=== PATIENT | male | born 1955 | race Caucasian/White ===

== ENCOUNTER → 2016-05-05 | Outpatient (CLI) | payer BC ==
[~2016-05-05] MED LIST: CRG40 PO; FRS/40 PO; MULT-506 PO; POTA10CA28 PO; SPIR100T PO
--- NOTE | 2016-05-05 09:26 | DIAGNOSTIC IMAGING REPORT ---
ULTRASOUND RIGHT UPPER QUADRANT ABDOMEN CLINICAL HISTORY: Alcohol cirrhosis. COMPARISON STUDY: Abdominal ultrasound dated 04/03/2014. MRI of the liver dated 05/19/2014. TECHNIQUE: Real-time, grayscale, and color flow sonography of the right upper quadrant of the abdomen was performed. Images are reviewed in the transverse and longitudinal planes. FINDINGS: Liver: The liver is cirrhotic in morphology and heterogeneous in echotexture. There is nodularity of the hepatic surface contour. There is no sonographic evidence of hepatic mass lesion. There is no intrahepatic biliary ductal dilatation. The main portal vein is patent. Gallbladder: Small shadowing calcified gallstones are identified. There is no gallbladder wall thickening or pericholecystic fluid. A sonographic Hough's sign is reportedly absent. The common bile duct measures up to 0.3 cm in diameter. Pancreas: Visualized portions of the pancreatic head and body are normal in appearance. Right kidney: Survey images of the right kidney demonstrate cortical atrophy. There is no hydronephrosis. Ascites: None. IMPRESSION: 1. The liver is cirrhotic in morphology and heterogeneous in echotexture. 2. Cholelithiasis without sonographic evidence of acute cholecystitis. Electronically signed by: Oswaldo Tam M.D. 05/05/2016 9:24 AM Dictated Date/Time: 05/05/2016 9:22 AM
[2016-05-05 14:49] LABS: BASO % 0.6 %; BASO ABS # 0.05 K/uL (0-0.2); COMPLETE YES; EOS % 1.5 %; HEMATOCRIT 48.4 % (42-52); IG% 0.5 %; LYMPH % 21.4 %; LYMPH ABS # 1.75 K/uL (1.2-3.4); MEAN CORPUSCULAR HEMOGLOBIN 34.4 pg (25-34); MEAN CORPUSCULAR HGB CONC 34.7 g/dl (32-36); MEAN PLATELET VOLUME 10.7 fL (7.4-10.4); MONO % 9.6 %; NEUT % 66.4 %; PLATELET COUNT 214 K/uL (130-400); RED BLOOD COUNT 4.89 M/uL (4.7-6.1); WHITE BLOOD COUNT 8.19 K/uL (4.8-10.8)
[2016-05-05 15:01] LABS: INR 1.1 (0.9-1.1); PROTHROMBIN TIME (PATIENT) 11.7 SECONDS (9.0-12.0)
[2016-05-05 15:27] LABS: ALT/SGPT 54 U/L (12-78); AST/SGOT 55 U/L (15-37); BLOOD UREA NITROGEN 12 mg/dl (7-18); BUN/CREATININE RATIO 11.1 (10-20); CALCIUM 9.1 mg/dl (8.5-10.1); CARBON DIOXIDE 28 mmol/L (21-32); CHLORIDE 102 mmol/L (98-107); GLUCOSE 170 mg/dl (70-99); POTASSIUM 4.4 mmol/L (3.5-5.1); SODIUM 139 mmol/L (136-145)
[2016-05-05 15:29] LABS: ALB/GLOB RATIO 0.9 (0.9-2); ALKALINE PHOSPHATASE 83 U/L (45-117)
[2016-05-09 19:38] LABS: AFP TUMOR MARKER SERUM 8.3 NG/ML (<6.1)
== END | disposition home or self-care (01) ==
PROVIDERS: ATTEND Registered Nurse
DX: K70.30 Alcoholic cirrhosis of liver without ascites (principal)

== ENCOUNTER → 2017-04-03 | Outpatient (CLI) | payer BC ==
--- NOTE | 2017-04-03 09:09 | DIAGNOSTIC IMAGING REPORT ---
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 Heterogeneous internal architecture. No change from the prior exam in terms of appearance. Pancreas is unremarkable. Gallstones are present within the gallbladder lumen. This is unchanged. Normal caliber common bile duct is 5 mm. Right kidney is negative for hydronephrosis. IMPRESSION: 1. Findings consistent with hepatic cirrhosis. 2. Gallstones with a normal caliber bile ducts. 3. Remainder the study is negative. 4. No change from the prior exam The above report was generated using voice recognition software. It may contain grammatical, syntax or spelling errors. Electronically signed by: Javi Maher M.D. 04/03/2017 9:07 AM Dictated Date/Time: 04/03/2017 9:05 AM
== END | disposition home or self-care (01) ==
LOC: C.ULTRBC 08:11
PROVIDERS: ATTEND Registered Nurse
DX: K70.30 Alcoholic cirrhosis of liver without ascites (principal)

== ENCOUNTER → 2017-10-19 | Outpatient (CLI) | payer BC ==
[2017-10-19 11:14] LABS: BASO % 0.7 %; BASO ABS # 0.05 K/uL (0-0.2); EOS % 1.2 %; EOS ABS # 0.09 K/uL (0-0.5); HEMATOCRIT 45.9 % (42-52); HEMOGLOBIN 15.5 g/dL (14.0-18.0); IG# 0.02 K/uL (0.00-0.02); LYMPH % 22.6 %; LYMPH ABS # 1.71 K/uL (1.2-3.4); MEAN CELL VOLUME 104.1 fL (80-100); MEAN CORPUSCULAR HEMOGLOBIN 35.1 pg (25-34); MEAN CORPUSCULAR HGB CONC 33.8 g/dl (32-36); MEAN PLATELET VOLUME 10.8 fL (7.4-10.4); MONO % 12.4 %; MONO ABS # 0.94 K/uL (0.11-0.59); NEUT % 62.8 %; NEUT ABS # 4.77 K/uL (1.4-6.5); PLATELET COUNT 205 K/uL (130-400); RED CELL DISTRIBUTION WIDTH CV 13.4 % (11.5-14.5); RED CELL DISTRIBUTION WIDTH SD 51.2 fL (36.4-46.3); WHITE BLOOD COUNT 7.58 K/uL (4.8-10.8)
[2017-10-19 11:20] LABS: INR 1.3 (0.9-1.1)
[2017-10-19 14:45] LABS: ALKALINE PHOSPHATASE 131 U/L (45-117); ALT/SGPT 34 U/L (12-78); AST/SGOT 76 U/L (15-37); BLOOD UREA NITROGEN 9 mg/dl (7-18); CALCIUM 9.2 mg/dl (8.5-10.1); CARBON DIOXIDE 25 mmol/L (21-32); GLUCOSE 126 mg/dl (70-99); POTASSIUM 4.3 mmol/L (3.5-5.1); SODIUM 137 mmol/L (136-145); TOTAL PROTEIN 7.4 gm/dl (6.4-8.2)
== END | disposition home or self-care (01) ==
LOC: C.LABBC 09:20
PROVIDERS: ATTEND Registered Nurse
DX: K70.30 Alcoholic cirrhosis of liver without ascites (principal)

== ENCOUNTER → 2017-10-19 | Outpatient (CLI) | payer BC ==
--- NOTE | 2017-10-19 09:33 | DIAGNOSTIC IMAGING REPORT ---
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 TECHNIQUE: Real-time grayscale and limited color Doppler ultrasound imaging of the abdomen limited to the right upper quadrant was performed. COMPARISON: 04/03/2017. FINDINGS: Pancreas: Visualized portions of the pancreatic head and body normal. Liver: Nodular contour with hyperechogenic parenchyma and heterogeneous echotexture, consistent with cirrhosis. The liver measures 16.9 cm in maximal sagittal dimension. Vague 1.3 cm hyperechogenic focus in the liver, possibly a lesion. This was not demonstrated on prior. Main portal vein patent with normal directional flow. Biliary: No intrahepatic biliary ductal dilatation. Common bile duct measures up to 4 mm in diameter. Gallbladder: Gallstones without evidence of gallbladder distention, wall thickening, or pericholecystic fluid or inflammatory change. Sonographic Hough's sign negative. Right kidney: 9 mm hyperechogenic focus at the lower pole the right kidney, unchanged. This may represent a small angiomyolipoma with calculus considered less likely given the lack of shadowing. Ascites: Small amount of ascites. Other: None. IMPRESSION: 1. Cirrhosis with small volume ascites. 2. Vague 1.3 cm hyperechogenic lesion suggested. Further evaluation with contrast-enhanced MR of the liver recommended. 3. Cholelithiasis. The report will be called/faxed according to standard departmental protocol. Electronically signed by: Ehsan Syed M.D. 10/19/2017 9:31 AM Dictated Date/Time: 10/19/2017 9:26 AM
== END | disposition home or self-care (01) ==
LOC: C.ULTRBC 08:49
PROVIDERS: ATTEND Registered Nurse
DX: K70.30 Alcoholic cirrhosis of liver without ascites (principal)

== ENCOUNTER → 2017-10-27 | Outpatient (CLI) | payer BC ==
[~2017-10-27] MED LIST changes: +GADOXETATE DISODIUM (NON-WT BASED PROCEDURE) IV PRN
--- NOTE | 2017-10-27 10:11 | DIAGNOSTIC IMAGING REPORT ---
ADDENDUM Please see the corrected technique below: TECHNIQUE: Multisequence, multiplanar MR imaging of the abdomen was performed before and after the administration of intravenous contrast. IV contrast: 10 mL of Eovist. Electronically signed by: Ehsan Syed M.D. 10/27/2017 10:27 AM Dictated Date/Time: 10/27/2017 10:26 AM ORIGINAL REPORT LIVER COMBO CLINICAL HISTORY: 62 years-old Male presenting with LIVER LESION. TECHNIQUE: Multisequence, multiplanar MR imaging of the abdomen was performed before and after the administration of intravenous contrast. IV contrast: None. COMPARISON: 05/19/2014 and ultrasound from 10/19/2017. FINDINGS: Localizer images: Unremarkable. Lung bases: Lungs and pleural spaces clear. Normal heart size. No pericardial or pleural effusion. Liver: Nodular morphology consistent with cirrhosis. Numerous subcentimeter T1 hyperintense nodules, possibly dysplastic nodules (for example series 7 image 12). Few subcentimeter sites of minimal arterial hyperenhancement without focal washout (for example series 1001 image 43). These may represent vascular shunts. Few subcentimeter sites of washout without arterial enhancement (for example series 1003 image 31; segment 8 9 mm lesion LI-RADS 3). Attention on follow-up. Hepatic fat fraction measures 7% consistent with mild steatosis. Conventional hepatic arterial anatomy. Portal and hepatic veins patent. Biliary: No intrahepatic or extrahepatic biliary ductal dilatation. Gallbladder contains gallstones and layering sludge. Pancreas: 5 mm cystic lesion in the pancreatic head, possibly small side branch intraductal papillary mucinous neoplasm or mucinous cyst. No pancreatic ductal dilatation. Overall mildly atrophic pancreatic parenchyma. Spleen: Normal. The spleen is not enlarged. Adrenal glands: Normal. Kidneys and ureters: Subcentimeter right renal cyst. No hydronephrosis. Bowel: Normal. No bowel obstruction. Peritoneal cavity: Small amount of ascites. Lymph nodes: No enlarged lymph nodes in the abdomen. Vasculature: Aorta and IVC patent and normal in caliber. Abdominal wall: Bilateral gynecomastia. Musculoskeletal: Normal. IMPRESSION: 1. Cirrhosis. Intermediate probability subcentimeter lesion in the right hepatic lobe (LI-RADS 3). Attention on follow-up. No lesions meet OPTN diagnostic criteria for hepatocellular carcinoma at this time. 2. No morphologic evidence of portal hypertension apart from ascites. 3. Subcentimeter side branch intraductal papillary mucinous neoplasm or mucinous cyst. No worrisome features. Attention on follow-up. Electronically signed by: Ehsan Syed M.D. 10/27/2017 10:10 AM Dictated Date/Time: 10/27/2017 9:38 AM
== END | disposition home or self-care (01) ==
LOC: C.MRI 08:19
PROVIDERS: ATTEND Registered Nurse
DX: K76.89 Other specified diseases of liver (principal); R93.3 Abnormal findings on diagnostic imaging of other parts of digestive tract; K74.60 Unspecified cirrhosis of liver

== ENCOUNTER 2019-10-19 06:04 | Observation (INO) ==
[2019-10-19] MEDS ORDERED: SODIUM CHLORIDE 0.9% 250 ML IV ONE (06:44)
[2019-10-19] MEDS ORDERED: SODIUM CHLORIDE 0.9% 500 ML IV SCH (06:45)
--- NOTE | 2019-10-19 06:52 | Emergency Department Note ---
History of Present Illness General Chief complaint: Dizziness Stated complaint: DIZZY Time Seen by Provider: 10/19/19 06:27 Source: patient and family (Spouse who is at the bedside) Mode of arrival: ambulatory Limitations: no limitations History of Present Illness This patient has a history of liver failure with recent TIPS procedure, comes in complaining feeling dizzy since around 4:30 in the morning. He describes as a spinning is worse with movement. He denies any focal numbness or weakness. No fall or trauma. No fever or chills. No headache, neck pain, or stiffness. No difficulty speaking or swallowing. No change in vision. 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 His tells me since ascites has improved markedly and they stopped diuretics since Thursday. He did have a hepatic encephalopathy episode on Thursday and they start on the lactulose after which she is had several bowel movements without blood. He had no chest pain shortness of breath or pa lpitations. No COVID exposure and was tested COVID negative in September 29 while at [facility]. No abdominal pain. Denies dysuria or hematuria. He has some nausea with the dizziness but no vomiting. He is followed locally by Dr. Pineda as well as Dr. Sanchez and sees [facility] and is on the liver transplant list for 1 year Home Medications Home Medications Medication Instructions Recorded Confirmed Type lactulose 30 ml PO BID 08/13/18 10/19/19 History rifaximin 550 mg PO BID 09/17/18 10/19/19 History nadolol 40 mg tablet 40 mg PO QAM #90 tab 02/16/19 10/19/19 Rx furosemide 40 mg tablet 120 mg PO QAM tab 07/18/19 10/19/19 History spironolactone 100 mg tablet 300 mg PO QAM tab 07/18/19 10/19/19 History pantoprazole 40 mg PO DAILYBB 09/19/19 10/19/19 History polyethylene glycol 3350 [Miralax] 17 g PO DAILY 09/19/19 10/19/19 History potassium chloride 10 meq PO BID 09/19/19 10/19/19 History Allergies Allergy/AdvReac Type Severity Reaction Status Date / Time Penicillins Allergy Unknown unknown, Verified 10/19/19 06:22 in childhood acetaminophen AdvReac Severe NO APAP Verified 10/19/19 06:[address] VILLAVICENCIO (PT HAS ASCITES) 12/18/08 latex AdvReac Intermediate SKIN Verified 10/19/19 06:22 IRRITATION steroids Allergy Severe "not Uncoded 10/19/19 06:22 supposed to take d/t ascites per Dr. Villavicencio" Past Med/Surg History Medical History (Updated 10/19/19 @ 14:43 by Roland Villavicencio MD) Laennecs cirrhosis Osteoarthritis Surgical History History of colonoscopy with polypectomy History of esophagogastroduodenoscopy (EGD) History of tooth extraction S/P abdominal paracentesis HX OF---multiple---6 this year, last 02/22/19 Family History Mother Family history of diabetes mellitus Brother Hemochromatosis Other No family history of adverse response to anesthesia Social History Smoking Status: Former smoker Smoking End Date: 1983; Second Hand Exposure: Yes (father smoked); Do You Dip or Chew Tobacco: No; Tobacco Cessation Education Requested by Patient: No Hx Alcohol Use: Yes Hx Substance Use: No Preferred Language: Thai Communication Ability: Effective Printing Manager Required: No Beliefs That Will Affect Care: None marital status: Current Living Situation: Spouse Current Living Situation Comment: Lives with and mother in law current occupational status: employed current occupation: Professor at [employer] Other Information That Helps Us Care for You: No Feels Safe at Home: Yes Safety Concerns: Feels Safe At This Time Review of Systems A total of 10 systems reviewed and were otherwise negative Physical Exam Vital Signs Vital Signs - 24 hr 10/19/19 06:06 10/19/19 06:31 10/19/19 06:32 Temperature 36.8 C Temperature Source Oral Pulse Rate 64 68 70 Pulse Rate [Apical] Pulse Rate from SpO2 Sensor 61 69 Pulse Rhythm [Apical] Respiratory Rate 18 22 19 Respiratory Effort / Characteristics Non-Labored Respiratory Depth Normal Respiratory Pattern Regular Blood Pressure 119/66 102/57 L Blood Pressure [Left Arm] Blood Pressure Mean 83 66 Blood Pressure Mean [Left Arm] Blood Pressure Position [Left Arm] Pulse Oximetry 98 98 99 Oxygen Delivery Method Room Air Room Air Oxygen Flow Rate Sepsis Recent Fever Within 48 Hours No Sepsis New/Unexplained Change in Mental Status No Sepsis Action Taken by Nursing No Action Required 10/19/19 06:45 10/19/19 06:46 10/19/19 07:00 Temperature Temperature Source Pulse Rate 67 69 Pulse Rate [Apical] Pulse Rate from SpO2 Sensor 66 62 Pulse Rhythm [Apical] Respiratory Rate 20 18 Respiratory Effort / Characteristics Respiratory Depth Respiratory Pattern Blood Pressure Blood Pressure [Left Arm] Blood Pressure Mean Blood Pressure Mean [Left Arm] Blood Pressure Position [Left Arm] Pulse Oximetry 100 99 99 Oxygen Delivery Method Room Air Oxygen Flow Rate Sepsis Recent Fever Within 48 Hours Sepsis New/Unexplained Change in Mental Status Sepsis Action Taken by Nursing 10/19/19 07:02 10/19/19 07:03 10/19/19 07:04 Temperature Temperature Source Pulse Rate 64 Pulse Rate [Apical] 67 Pulse Rate from SpO2 Sensor 64 Pulse Rhythm [Apical] Irregular Respiratory Rate 22 Respiratory Effort / Characteristics Non-Labored Non-Labored Respiratory Depth Normal Respiratory Pattern Regular Blood Pressure 96/65 L Blood Pressure [Left Arm] 96/65 L Blood Pressure Mean 71 Blood Pressure Mean [Left Arm] 75 Blood Pressure Position [Left Arm] Sitting Pulse Oximetry 99 99 99 Oxygen Delivery Method Room Air Room Air Room Air Oxygen Flow Rate 0 Sepsis Recent Fever Within 48 Hours Sepsis New/Unexplained Change in Mental Status Sepsis Action Taken by Nursing 10/19/19 07:15 10/19/19 07:41 10/19/19 07:44 Temperature Temperature Source Pulse Rate 69 71 67 Pulse Rate [Apical] Pulse Rate from SpO2 Sensor 64 65 64 Pulse Rhythm [Apical] Respiratory Rate 20 22 22 Respiratory Effort / Characteristics Respiratory Depth Respiratory Pattern Blood Pressure 94/48 L Blood Pressure [Left Arm] Blood Pressure Mean 69 Blood Pressure Mean [Left Arm] Blood Pressure Position [Left Arm] Pulse Oximetry 99 100 100 Oxygen Delivery Method Oxygen Flow Rate Sepsis Recent Fever Within 48 Hours Sepsis New/Unexplained Change in Mental Status Sepsis Action Taken by Nursing 10/19/19 07:45 10/19/19 08:00 10/19/19 08:22 Temperature Temperature Source Pulse Rate 69 70 Pulse Rate [Apical] Pulse Rate from SpO2 Sensor 68 70 Pulse Rhythm [Apical] Respiratory Rate 15 20 Respiratory Effort / Characteristics Non-Labored Respiratory Depth Respiratory Pattern Blood Pressure 74/38 L 106/58 L Blood Pressure [Left Arm] Blood Pressure Mean 44 62 Blood Pressure Mean [Left Arm] Blood Pressure Position [Left Arm] Pulse Oximetry 100 100 100 Oxygen Delivery Method Room Air Oxygen Flow Rate Sepsis Recent Fever Within 48 Hours Sepsis New/Unexplained Change in Mental Status Sepsis Action Taken by Nursing 10/19/19 08:23 10/19/19 08:24 10/19/19 08:30 Temperature Temperature Source Pulse Rate 71 71 Pulse Rate [Apical] Pulse Rate from SpO2 Sensor 72 72 Pulse Rhythm [Apical] Respiratory Rate 20 17 Respiratory Effort / Characteristics Respiratory Depth Respiratory Pattern Blood Pressure 108/65 Blood Pressure [Left Arm] Blood Pressure Mean 74 Blood Pressure Mean [Left Arm] Blood Pressure Position [Left Arm] Pulse Oximetry 100 100 100 Oxygen Delivery Method Room Air Oxygen Flow Rate Sepsis Recent Fever Within 48 Hours Sepsis New/Unexplained Change in Mental Status Sepsis Action Taken by Nursing 10/19/19 08:31 Temperature Temperature Source Pulse Rate 73 Pulse Rate [Apical] Pulse Rate from SpO2 Sensor 72 Pulse Rhythm [Apical] Respiratory Rate 17 Respiratory Effort / Characteristics Respiratory Depth Respiratory Pattern Blood Pressure Blood Pressure [Left Arm] Blood Pressure Mean Blood Pressure Mean [Left Arm] Blood Pressure Position [Left Arm] Pulse Oximetry 100 Oxygen Delivery Method Oxygen Flow Rate Sepsis Recent Fever Within 48 Hours Sepsis New/Unexplained Change in Mental Status Sepsis Action Taken by Nursing General: Well developed well nourished somewhat cachectic older male who appears in no acute distress, breathing comfortably on room air. Normal speech, nonslurred. No tremor HEENT: Normal cephalic atraumatic. Pupils are equal round and reactive to light. Extraocular movements are intact. Oropharynx is pink with moist mucous membranes. No swelling of the mouth lips or tongue. Neck: Supple with a midline trachea. No meningeal signs or stiffness, no JVD or bruits. No Stridor. Chest: Clear to auscultation bilaterally. No wheezes or rhonchi. No increased work of breathing. Heart: Regular rate and rhythm without murmurs or gallops. Abdomen: Soft nontender, nondistended without rebound guarding or rigidity. Extremities: No cyanosis clubbing or edema. No calf tenderness or assymetry Spine/Back. Non tender to palpation. No CVA tenderness Skin: Good turgor without rashes. Neurologic exam: Cranial nerves two through 12 are intact. Motor and sensation are intact and symmetrical throughout. Negative asterixis Course Administered Medications Sodium Chloride (Nss 1000ml) 1,000 mls @ 125 mls/hr IV .Q8H COSTA Stop: 11/18/19 10:44 Last Admin: 10/19/19 10:55 Dose: 125 mls/hr Documented by: [id number] Lactulose (Lactulose Syrup 20 Gm/30 Ml Udc) 20 gm PO BID COSTA Stop: 11/18/19 10:44 Last Admin: 10/19/19 11:58 Dose: 20 gm Documented by: [id number] Meclizine HCl (Meclizine Hcl 25 Mg Tab) 25 mg PO Q6H PRN PRN Reason: Dizziness or Vertigo Stop: 11/18/19 10:17 Last Admin: 10/19/19 11:58 Dose: 25 mg Documented by: [id number] Nadolol (Nadolol 40 Mg Tab) 40 mg PO QAM COSTA Stop: 11/18/19 10:17 Last Admin: 10/19/19 11:58 Dose: 40 mg Documented by: [id number] Polyethylene Glycol (Polyethylene (Miralax) 17 Gm Pack) 17 gm PO DAILY COSTA Stop: 11/18/19 10:17 Last Admin: 10/19/19 12:01 Dose: 17 gm Documented by: [id number] Potassium Chloride (Potassium Chloride 10 Meq Tabcr) 10 meq PO BID COSTA Stop: 11/18/19 10:17 Last Admin: 10/19/19 11:59 Dose: 10 meq Documented by: [id number] Rifaximin (Rifaximin 550 Mg Tablet) 550 mg PO BID COSTA Stop: 11/18/19 10:17 Last Admin: 10/19/19 11:58 Dose: 550 mg Documented by: [id number] Discontinued Medications Sodium Chloride (Nss) 500 mls @ 125 mls/hr IV .Q4H COSTA Stop: 11/18/19 06:44 Last Infusion: 10/19/19 10:38 Dose: 0 mls/hr Documented by: [id number] Admin: 10/19/19 07:45 Dose: 125 mls/hr Documented by: [id number] Sodium Chloride (Nss) 250 mls @ 999 mls/hr IV .Q16M ONE Stop: 10/19/19 06:59 Last Infusion: 10/19/19 07:41 Dose: 0 mls/hr Documented by: [id number] Infusion: 10/19/19 07:26 Dose: 999 mls/hr Documented by: [id number] Infusion: 10/19/19 07:02 Dose: 0 mls/hr Documented by: [id number] Admin: 10/19/19 07:01 Dose: 999 mls/hr Documented by: [id number] Miscellaneous Information (Consult Pharmacy) 1 ea N/A NOW STA Stop: 10/19/19 10:19 Last Admin: 10/19/19 11:59 Dose: Not Given Documented by: [id number] Medical Decision Making Differential Diagnosis Vertigo, central neurologic process/TIA/CVA, complication related to liver failure, electrolyte or metabolic abnormality, arrhythmia, cardiac disease, anemia, infection, sepsis, hepatic encephalopathy, post procedure complication Medical Records Attestation: I reviewed the patient's medical records. Home Medications Current Medication List: was personally reviewed by me Laboratory Data Attestation: I reviewed the patient's lab results. Result diagrams: 10/19/19 06:30 10/19/19 06:30 Lab Results 10/19/19 10/19/19 10/19/19 Range/Units 06:30 06:30 06:30 WBC 7.07 (4.8-10.8) K/uL RBC 3.88 L (4.7-6.1) M/uL Hgb 12.8 L (14.0-18.0) g/dL Hct 36.8 L (42-52) % MCV 94.8 (80-100) fL MCH 33.0 (25-34) pg MCHC 34.8 (32-36) g/dL RDW Std Deviation 56.1 H (36.4-46.3) fL RDW Coeff of Felisa 16.4 H (11.5-14.5) % Plt Count 214 (130-400) K/uL MPV 9.6 (7.4-10.4) fL Immature Gran % (Auto) 0.4 % Neut % (Auto) 64.1 % Lymph % (Auto) 15.8 % Stephens % (Auto) 16.4 % Eos % (Auto) 2.5 % Baso % (Auto) 0.8 % Neut # (Auto) 4.52 (1.4-6.5) K/uL Lymph # (Auto) 1.12 L (1.2-3.4) K/uL Stephens # (Auto) 1.16 H (0.11-0.59) K/uL Eos # (Auto) 0.18 (0-0.5) K/uL Baso # (Auto) 0.06 (0-0.2) K/uL Immature Gran # (Auto) 0.03 H (0.00-0.02) K/uL PT 13.2 H (9.0-12.0) Seconds INR 1.3 H (0.9-1.1) APTT 28.8 (21.0-31.0) Seconds PTT Ratio 1.0 Sodium 139 (136-145) mmol/L Potassium 4.2 (3.5-5.1) mmol/L Chloride 110 H (98-107) mmol/L Carbon Dioxide 23 (21-32) mmol/L Anion Gap 6.0 (3-11) BUN 11 (7-18) mg/dl Creatinine 1.00 (0.6-1.4) mg/dl Est Cr Clr Drug Dosing 68.6 ml/min Est GFR ( Amer) 91.8 Est GFR (Non-Af Amer) 79.2 BUN/Creatinine Ratio 11.3 (10-20) Glucose 176 H (70-99) mg/dl Lactate (0.4-2.0) mmol/L Calcium 8.2 L (8.5-10.1) mg/dl Magnesium 2.2 (1.8-2.4) mg/dl Total Bilirubin 2.1 H (0.2-1) mg/dl AST 57 H (15-37) U/L ALT 49 (12-78) U/L Alkaline Phosphatase 122 H (45-117) U/L Ammonia (11-32) umol/L Troponin I < 0.015 (0-0.045) ng/ml Total Protein 6.5 (6.4-8.2) gm/dl Albumin 2.5 L (3.4-5.0) gm/dl Globulin 4.0 (2.5-4.0) gm/dl Albumin/Globulin Ratio 0.6 L (0.9-2) Ethyl Alcohol mg/dL (0-3) mg/dl 10/19/19 10/19/19 10/19/19 Range/Units 07:02 07:02 08:18 WBC (4.8-10.8) K/uL RBC (4.7-6.1) M/uL Hgb (14.0-18.0) g/dL Hct (42-52) % MCV (80-100) fL MCH (25-34) pg MCHC (32-36) g/dL RDW Std Deviation (36.4-46.3) fL RDW Coeff of Felisa (11.5-14.5) % Plt Count (130-400) K/uL MPV (7.4-10.4) fL Immature Gran % (Auto) % Neut % (Auto) % Lymph % (Auto) % Stephens % (Auto) % Eos % (Auto) % Baso % (Auto) % Neut # (Auto) (1.4-6.5) K/uL Lymph # (Auto) (1.2-3.4) K/uL Stephens # (Auto) (0.11-0.59) K/uL Eos # (Auto) (0-0.5) K/uL Baso # (Auto) (0-0.2) K/uL Immature Gran # (Auto) (0.00-0.02) K/uL PT (9.0-12.0) Seconds INR (0.9-1.1) APTT (21.0-31.0) Seconds PTT Ratio Sodium (136-145) mmol/L Potassium (3.5-5.1) mmol/L Chloride (98-107) mmol/L Carbon Dioxide (21-32) mmol/L Anion Gap (3-11) BUN (7-18) mg/dl Creatinine (0.6-1.4) mg/dl Est Cr Clr Drug Dosing ml/min Est GFR ( Amer) Est GFR (Non-Af Amer) BUN/Creatinine Ratio (10-20) Glucose (70-99) mg/dl Lactate 2.1 H* (0.4-2.0) mmol/L Calcium (8.5-10.1) mg/dl Magnesium (1.8-2.4) mg/dl Total Bilirubin (0.2-1) mg/dl AST (15-37) U/L ALT (12-78) U/L Alkaline Phosphatase (45-117) U/L Ammonia 87.8 H (11-32) umol/L Troponin I (0-0.045) ng/ml Total Protein (6.4-8.2) gm/dl Albumin (3.4-5.0) gm/dl Globulin (2.5-4.0) gm/dl Albumin/Globulin Ratio (0.9-2) Ethyl Alcohol mg/dL < 3.0 (0-3) mg/dl Imaging Data Attestation: I personally reviewed and interpreted this imaging study as follows: My Impression: Chest x-ray: No acute infiltrate, failure, pneumothorax seen. Radiologist's Impression: XR chest 1V portable CLINICAL HISTORY: SEPSIS dyspnea COMPARISON STUDY: 12/18/2008 FINDINGS: The bones soft tissues and hemidiaphragms are normal. The cardiomediastinal silhouette is normal. The lungs are clear. The pulmonary vasculature is normal. IMPRESSION: Negative chest. CT head/brain wo con CT DOSE: 614.27 mGy.cm HISTORY: Mental status change dizziness TECHNIQUE: Multiaxial CT images of the head were performed without the use of intravenous contrast. A dose lowering technique was utilized adhering to the principles of ALARA. Comparison: None. Findings: The paranasal sinuses and mastoid air cells are clear. The calvarium and skull base are intact. The ventricles and sulci are within normal limits. There is no mass, hematoma, midline shift, or acute infarct. Impression: No acute intracranial abnormality. ECG Data Attestation: I personally reviewed and interpreted this ECG as follows: Indication: + other (dizziness) Rate (beats per minute): 55 Rhythm: + sinus bradycardia ECG Intervals/blocks: + Normal QRS, + Normal QT and + Normal OK ECG Kaleva: + Normal ECG ST segments: + Nonspecific ST abnormalities ECG Findings: no PACs and no PVCs Comparison ECG Date: from (12/18/18) Change: the following changes noted (The rate has decreased) Blood Pressure Blood Pressure Findings: Normal blood pressure Blood Pressure Disposition: did not require urgent referral MDM Narrative This patient comes in as described above. He feels dizzy. He looks well however has a very complicated medical history with liver failure and recent TIPS procedure. He has no abdominal pain. Initial vital signs are unremarkable. IV access was established he was gently hydrated with a 250 cc normal saline bolus. I was concerned about electrolytes as well as he recently lost fluids and stopped his diuretics. Patient initial EKG does not suggest acute coronary syndrome or significant arrhythmia. I also did a CAT scan of his head and chest x-ray and multiple blood tests including blood cultures, lactic acid, and ammonia levels. He was evaluated from a sepsis standpoint as well as cardiac and metabolic as well. He was reassessed frequently. He has no fever or white count suggest infection. His hemoglobin is 12.8 and he is not significantly anemic. He has a bilirubin of 2.1 but normal kidney function the rest of his LFTs look good. His INR is 1.3. He has no acute electrolyte or metabolic abnormalities which would explain his symptoms. His troponin is not elevated and his symptoms do not suggest cardiac disease or arrhythmia. The patient asked that I calculate a meld score which was 12. He typically runs about 17 he says. His ammonia was elevated at 83 although he does not appear to clinically have hepatic encephalopathy. His lactic acid is minimally elevated at 2.1. He is being hydrated. I think he is mostly dehydrated he could have some peripheral vertigo as well. CAT scan of his head was unremarkable. Given his complexity and his dizziness I do think it is best to observe him and hydrate him and make sure he is feeling better as he is a fall risk. I have consulted the [facility] hospitalist to see him for these measures Continuous cardiac monitoring: An order was placed in the computer/EMR and the patient was placed on a continuous satellite project site monitor and was noted to be in normal sinus rhythm with a rate of 60 Impression & Plan Dizziness, Laennec's cirrhosis, Acute dehydration, Elevated lactic acid level Discharge Plan Visit Data Chief Complaint: Dizziness Stated Complaint: DIZZY ED Provider: Artie Gallardo Discharge Problem: Dizziness, Laennec's cirrhosis, Acute dehydration, Elevated lactic acid level Patient Disposition: Admitted As Inpatient Discharge Instructions Interventions: ED Discharge Assessment Last Done: 10/19/19 09:45
[2019-10-19 06:55] LABS: Basophils # (auto) 0.06 K/uL (0-0.2); Basophils % (auto) 0.8 %; Eosinophils # (auto) 0.18 K/uL (0-0.5); Eosinophils % (auto) 2.5 %; Hematocrit (blood only) 36.8 % (42-52); Hemoglobin 12.8 g/dL (14.0-18.0); Immature Granulocytes # (auto) 0.03 K/uL (0.00-0.02); Immature Granulocytes % (auto) 0.4 %; Lymphocytes # (auto) 1.12 K/uL (1.2-3.4); Lymphocytes % (auto) 15.8 %; Mean Corpuscular Hgb Conc 34.8 g/dL (32-36); Mean Corpuscular Volume 94.8 fL (80-100); Mean Platelet Volume 9.6 fL (7.4-10.4); Monocytes # (auto) 1.16 K/uL (0.11-0.59); Monocytes % (auto) 16.4 %; Neutrophils # (auto) 4.52 K/uL (1.4-6.5); Neutrophils % (auto) 64.1 %; Platelet Count 214 K/uL (130-400); RDW Coefficient of Variation 16.4 % (11.5-14.5); RDW Standard Deviation 56.1 fL (36.4-46.3); Red Blood Count 3.88 M/uL (4.7-6.1); White Blood Count 7.07 K/uL (4.8-10.8)
--- NOTE | 2019-10-19 07:00 | XRay Report ---
XR chest 1V portable CLINICAL HISTORY: SEPSIS dyspnea COMPARISON STUDY: 12/18/2008 FINDINGS: The bones soft tissues and hemidiaphragms are normal. The cardiomediastinal silhouette is n ormal. The lungs are clear. The pulmonary vasculature is normal. IMPRESSION: Negative chest. ACT 112: Negative or not required by law. The above report was generated using voice recognition software. It may contain grammatical, syntax or spelling errors. Electronically signed by: Javi Maher M.D. 10/19/2019 6:59 AM
[2019-10-19 07:09] LABS: INR 1.3 (0.9-1.1); Partial Thromboplastin Time 28.8 Seconds (21.0-31.0); Prothrombin Time 13.2 Seconds (9.0-12.0)
[2019-10-19 07:12] LABS: Alanine Aminotransferase 49 U/L (12-78); Albumin Level 2.5 gm/dl (3.4-5.0); Aspartate Aminotransferase 57 U/L (15-37); BUN Creatinine Ratio 11.3 (10-20); Blood Urea Nitrogen 11 mg/dl (7-18); Calcium 8.2 mg/dl (8.5-10.1); Carbon Dioxide 23 mmol/L (21-32); Chloride 110 mmol/L (98-107); Creatinine Clr Calc Pharmacy 68.6 ml/min; Est GFR (African American) 91.8; Est GFR (Non-African American) 79.2; Glucose 176 mg/dl (70-99); Magnesium 2.2 mg/dl (1.8-2.4); Potassium 4.2 mmol/L (3.5-5.1); Sodium 139 mmol/L (136-145)
[2019-10-19 07:16] LABS: Albumin Globulin Ratio 0.6 (0.9-2); Alkaline Phosphatase 122 U/L (45-117); Bilirubin,Total 2.1 mg/dl (0.2-1); Total Protein 6.5 gm/dl (6.4-8.2); Troponin I < 0.015 ng/ml (0-0.045)
--- NOTE | 2019-10-19 07:43 | CT Scan Report ---
CT head/brain wo con CT DOSE: 614.27 mGy.cm HISTORY: Mental status change dizziness TECHNIQUE: Multiaxial CT images of the head were performed without the use of intravenous contrast. A dose lowering technique was utilized adhering to the principles of ALARA. Comparison: None. Findings: The paranasal sinuses and mastoid air cells are clear. The calvarium and skull base are int act. The ventricles and sulci are within normal limits. There is no mass, hematoma, midline shift, or acute infarct. Impression: No acute intracranial abnormality. ACT 112: Negative or not required by law. The above report was generated using voice recognition software. It may contain grammatical, syntax or spelling errors. Electronically signed by: Javi Maher M.D. 10/19/2019 7:41 AM
--- NOTE | 2019-10-19 08:29 | Hospitalist Consultation ---
Date of Consultation October 19, 2019 Assessment & Plan (1) Dizziness: Some description of vertigo, will try meclizine, did have negative CT head but also dose have minor ammonia elevation, continue lactulose and rifamixin GI consultation to advise on ammonia management (2) Hypertension: Pt recently did have lasix and spironolactone stopped, remains on Nadolol will follow (3) GERD (gastroesophageal reflux disease): protonix (4) DVT prophylaxis: scd History of Present Illness History of Present Illness This patient has a history of liver failure with recent TIPS procedure, comes in complaining feeling dizzy since around 4:30 in the morning. He describes as a spinning is worse with movement. He denies any focal numbness or weakness. No recent illness, but did have an episode of confusion over weekend and is not clear if he may have hit his head or not. No difficulty speaking or swallowing. No change in vision. 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 His tells me since ascites has improved markedly and they stopped diuretics since Thursday. He did have a hepatic encephalopathy episode on Thursday and afterward was start on the lactulose after which she is had several bowel movements without blood. He had no chest pain shortness of breath or palpitations. No COVID exposure and was tested COVID negative in September 29 while at [facility]. No abdominal pain. Denies dysuria or hematuria. He has some nausea with the dizziness but no vomiting. He is followed locally by Dr. Pineda as well as Dr. Sanchez and sees [facility] and is on the liver transplant list for 1 year on intake he did have worsening of dizziness with head movement Allergies Allergy/AdvReac Type Severity Reaction Status Date / Time Penicillins Allergy Unknown unknown, Verified 10/19/19 06:22 in childhood acetaminophen AdvReac Severe NO APAP Verified 10/19/19 06:[address] VILLAVICENCIO (PT HAS ASCITES) 12/18/08 latex AdvReac Intermediate SKIN Verified 10/19/19 06:22 IRRITATION steroids Allergy Severe "not Uncoded 10/19/19 06:22 supposed to take d/t ascites per Dr. Villavicencio" Home Medications Home Medications Medication Instructions Recorded Confirmed Type lactulose 30 ml PO BID 08/13/18 10/19/19 History rifaximin 550 mg PO BID 09/17/18 10/19/19 History nadolol 40 mg tablet 40 mg PO QAM #90 tab 02/16/19 10/19/19 Rx furosemide 40 mg tablet 120 mg PO QAM tab 07/18/19 10/19/19 History spironolactone 100 mg tablet 300 mg PO QAM tab 07/18/19 10/19/19 History pantoprazole 40 mg PO DAILYBB 09/19/19 10/19/19 History polyethylene glycol 3350 [Miralax] 17 g PO DAILY 09/19/19 10/19/19 History potassium chloride 10 meq PO BID 09/19/19 10/19/19 History Patient History Medical History (Updated 10/19/19 @ 14:43 by Roland Villavicencio MD) Laennecs cirrhosis Osteoarthritis Surgical History History of colonoscopy with polypectomy History of esophagogastroduodenoscopy (EGD) History of tooth extraction S/P abdominal paracentesis HX OF---multiple---6 this year, last 02/22/19 Family History Mother Family history of diabetes mellitus Brother Hemochromatosis Other No family history of adverse response to anesthesia Social History Smoking Status: Former smoker Smoking End Date: 1983; Second Hand Exposure: Yes (father smoked); Do You Dip or Chew Tobacco: No; Tobacco Cessation Education Requested by Patient: No Hx Alcohol Use: Yes Hx Substance Use: No Preferred Language: Arabic Communication Ability: Effective Cfo Required: No Beliefs That Will Affect Care: None marital status: Current Living Situation: Spouse Current Living Situation Comment: Lives with and mother in law current occupational status: employed current occupation: Professor at [employer] Other Information That Helps Us Care for You: No Feels Safe at Home: Yes Safety Concerns: Feels Safe At This Time Results & Data Results & Data ([facility]) Vital Signs (Past 12 Hours) Vital Signs Temp Pulse Pulse Resp BP BP Pulse Ox 10/19/19 08:24 100 10/19/19 08:22 70 20 106/58 L 100 10/19/19 08:00 69 15 74/38 L 100 10/19/19 07:45 100 10/19/19 07:44 67 22 94/48 L 100 10/19/19 07:41 71 22 100 10/19/19 07:15 69 20 99 10/19/19 07:04 99 10/19/19 07:03 64 67 22 96/65 L 96/65 L 99 10/19/19 07:02 99 10/19/19 07:00 69 18 99 10/19/19 06:46 99 10/19/19 06:45 67 20 100 10/19/19 06:32 70 19 99 10/19/19 06:31 68 22 102/57 L 98 10/19/19 06:06 98.2 F 64 18 119/66 98 PG Care Time/CCT Total # of Minutes Spent Total Time Spent with Patient: Total time spent is greater than 50% in coordination of care (as documented) at patient's floor/unit and/or counseling patient: Coding Diagnoses Dizziness R42 Hypertension I10 GERD (gastroesophageal reflux disease) K21.9 DVT prophylaxis Z29.9
[2019-10-19 09:53] LABS: Appearance Urine Clear (Clear); Bilirubin Urine Negative (Negative); Blood Urine Negative (Negative); Color Urine Yellow; Glucose Urine UA Negative (Negative); Ketones Urine Negative (Negative); Leukocyte Esterase Urine Negative (Negative); Nitrite Urine Negative (Negative); Protein Urine Negative (Negative); Specific Gravity Urine 1.008 (1.000-1.030); Urobilinogen Urine Positive (Negative); pH Urine 5.5 (4.5-7.5)
[2019-10-19] MEDS ORDERED: MECLIZINE HCL 25 MG TAB PO PRN (10:18)
[2019-10-19] MEDS ORDERED: ONDANSETRON INJ 2 MG/ML 2 ML VIAL IV PRN (10:18)
[2019-10-19] MEDS ORDERED: CONSULT PHARMACY STA (10:18)
[2019-10-19] MEDS: SODIUM CHLORIDE 0.9% 1000ML 1,000 ML IV SCH ×2 (10:55→20:55)
[2019-10-19] MEDS: LACTULOSE SYRUP 20 GM/30 ML UDC PO SCH ×2 (11:58→20:56)
[2019-10-19] MEDS: nadoloL 40 MG TAB PO SCH (11:58)
[2019-10-19] MEDS: RIFAXIMIN 550 MG TABLET PO SCH ×2 (11:58→20:56)
[2019-10-19] MEDS: POTASSIUM CHLORIDE 10 MEQ TABCR PO SCH ×2 (11:59→20:56)
[2019-10-19] MEDS: POLYETHYLENE (MIRALAX) 17 GM PACK PO SCH (12:01)
--- NOTE | 2019-10-19 12:24 | Gastrointestinal Consultation ---
Date of Consultation October 19, 2019 Assessment & Plan (1) Iman cirrhosis: -Currently following with [facility] where he is listed for a liver transplant -Recent TIPS procedure and subsequent decrease in diuretic dosage -History of hepatic encephalopathy; currently avoiding Lactulose due to his GI upset -Continue to monitor MELD labs & continue with outpatient GI/hepatology follow- up (2) Esophageal varices: -Continue Nadolol 40 mg daily -Up to date with endoscopic surveillance (3) Hepatic encephalopathy: Possibly contributing to the dizziness; Patient has been avoiding his Lactulose as an outpatient and trying to utilize Miralax instead -Xifaxan 550 mg BID -Lactulose 20 mg BID, may need to titrate up pending response -Miralax 17 gm daily -Titrate to a minimum of 4 bowel movements daily Supervising Physician Co-Signing Physician Notes Agree with RICHARD Sandoval Abd: Soft, NT, ND Will check patency of TIPS with US doppler study Continue Xifaxan and Lactulose Continue to abstain from all alcohol Continue supportive care History of Present Illness Reason for Consultation: "eval for ammonia status with recent TIPS" Attending Physician: Roland Villavicencio MD History of Present Illness Patient is a 64 yo male with cirrhosis currently under the care of [facility] through which he has been listed on the transplant list. He recently had a TIPS procedure 2 weeks ago. He reports improvement of his ascites, without the need for paracentesis or increased diuretics since that time. His diuretic dosages have been decreased by hepatology. He is hospitalized with a complaint of dizziness. His BP is currently 97/53. Ammonia is 87.8. CBC/CMP otherwise unremarkable with the exception of mild anemia. Lactate 2.1. AST 57, ALT 49. INR 1.2. Patient's reports he was encephalopathic on Thursday. She reports that she tried to treat this at home by utilizing increased dosages of Miralax. They report they have been avoiding Lactulose as they feel it upsets his stomach and prevents him from eating. He is compliant with Rifaximin. They deny constipation. No further pertinent complaints at this time. Allergies Allergy/AdvReac Type Severity Reaction Status Date / Time Penicillins Allergy Unknown unknown, Verified 10/19/19 06:22 in childhood acetaminophen AdvReac Severe NO APAP Verified 10/19/19 06:[address] VILLAVICENCIO (PT HAS ASCITES) 12/18/08 latex AdvReac Intermediate SKIN Verified 10/19/19 06:22 IRRITATION steroids Allergy Severe "not Uncoded 10/19/19 06:22 supposed to take d/t ascites per Dr. Villavicencio" Home Medications Home Medications Medication Instructions Recorded Confirmed Type lactulose 30 ml PO BID 08/13/18 10/19/19 History rifaximin 550 mg PO BID 09/17/18 10/19/19 History nadolol 40 mg tablet 40 mg PO QAM #90 tab 02/16/19 10/19/19 Rx furosemide 40 mg tablet 120 mg PO QAM tab 07/18/19 10/19/19 History spironolactone 100 mg tablet 300 mg PO QAM tab 07/18/19 10/19/19 History pantoprazole 40 mg PO DAILYBB 09/19/19 10/19/19 History polyethylene glycol 3350 [Miralax] 17 g PO DAILY 09/19/19 10/19/19 History potassium chloride 10 meq PO BID 09/19/19 10/19/19 History Patient History Medical History (Updated 10/19/19 @ 14:43 by Roland Villavicencio MD) Laennecs cirrhosis Osteoarthritis Surgical History History of colonoscopy with polypectomy History of esophagogastroduodenoscopy (EGD) History of tooth extraction S/P abdominal paracentesis HX OF---multiple---6 this year, last 02/22/19 Family History Mother Family history of diabetes mellitus Brother Hemochromatosis Other No family history of adverse response to anesthesia Social History Smoking Status: Former smoker Smoking End Date: 1983; Second Hand Exposure: Yes (father smoked); Do You Dip or Chew Tobacco: No; Tobacco Cessation Education Requested by Patient: No Hx Alcohol Use: Yes Hx Substance Use: No Preferred Language: Upper Sorbian Communication Ability: Effective Lab Rep Required: No Beliefs That Will Affect Care: None marital status: Current Living Situation: Spouse Current Living Situation Comment: Lives with and mother in law current occupational status: employed 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 That Helps Us Care for You: No Feels Safe at Home: Yes Safety Concerns: Feels Safe At This Time Review of Systems Constitutional: no fever and no chills Eyes: no problem reported Ear, Nose, Mouth, Throat: no problem reported Respiratory: no cough and no dyspnea Cardiovascular: no chest pain Gastrointestinal: + early satiety; no abdominal pain, no vomiting and no constipation Musculoskeletal: no problem reported Integumentary: no rash Neurologic: + dizziness Psychiatric: no problem reported Physical Exam Constitutional: WD/WN, vitals as above Eyes: PERRL, conjunctivae normal, anicteric sclerae Neck: normal visual inspection Respiratory: normal respiratory effort, lungs clear to auscultation Cardiovascular: RRR, no murmur, no edema Gastrointestinal (Abdomen): normal bowel sounds, soft, nontender, no hepatosplenomegaly Musculoskeletal: no cyanosis or clubbing, extremities motor strength 5/5 Skin: no rashes, warm and dry Psychiatric: A+Ox3, euthymic affect Results & Data ([facility]) Vital Signs (Past 12 Hours) Vital Signs Temp Pulse Pulse Pulse Resp BP BP 10/19/19 12:00 36.5 C 72 20 97/53 L 10/19/19 09:56 36.3 C L 76 20 101/62 10/19/19 09:45 10/19/19 09:30 10/19/19 09:26 73 20 102/56 L 10/19/19 09:15 69 18 10/19/19 09:00 72 21 102/54 L 10/19/19 08:45 74 20 10/19/19 08:31 73 17 10/19/19 08:30 71 17 108/65 10/19/19 08:24 10/19/19 08:23 71 20 10/19/19 08:22 70 20 106/58 L 10/19/19 08:00 69 15 74/38 L 10/19/19 07:45 10/19/19 07:44 67 22 94/48 L 10/19/19 07:41 71 22 10/19/19 07:15 69 20 10/19/19 07:04 10/19/19 07:03 64 67 22 96/65 L 96/65 L 10/19/19 07:02 10/19/19 07:00 69 18 10/19/19 06:46 10/19/19 06:45 67 20 10/19/19 06:32 70 19 10/19/19 06:31 68 22 102/57 L 10/19/19 06:06 36.8 C 64 18 119/66 Pulse Ox 10/19/19 12:00 99 10/19/19 09:56 100 10/19/19 09:45 99 10/19/19 09:30 99 10/19/19 09:26 100 10/19/19 09:15 100 10/19/19 09:00 100 10/19/19 08:45 100 10/19/19 08:31 100 10/19/19 08:30 100 10/19/19 08:24 100 10/19/19 08:23 100 10/19/19 08:22 100 10/19/19 08:00 100 10/19/19 07:45 100 10/19/19 07:44 100 10/19/19 07:41 100 10/19/19 07:15 99 10/19/19 07:04 99 10/19/19 07:03 99 10/19/19 07:02 99 10/19/19 07:00 99 10/19/19 06:46 99 10/19/19 06:45 100 10/19/19 06:32 99 10/19/19 06:31 98 10/19/19 06:06 98 PG Care Time/CCT Total # of Minutes Spent Total Time Spent with Patient: Total time spent is greater than 50% in coordination of care (as documented) at patient's floor/unit and/or counseling patient: Coding Level of Care Code 42950 Inpt Consult Level 4 Diagnoses Laennec's cirrhosis K70.30 Esophageal varices I85.00 Hepatic encephalopathy K72.90
--- NOTE | 2019-10-19 14:46 | History & Physical Report ---
Date of Service October 19, 2019 Assessment & Plan (1) Dizziness: Some description of vertigo, will try meclizine, did have negative CT head but also dose have minor ammonia elevation, continue lactulose and rifamixin GI consultation to advise on ammonia management (2) Hypertension: Pt recently did have lasix and spironolactone stopped, remains on Nadolol will follow (3) GERD (gastroesophageal reflux disease): protonix (4) DVT prophylaxis: scd Admission and Anticipated Discharge Date Admission Date: October 19, 2019 History of Present Illness Primary Care Provider: Missael Pineda This patient has a history of liver failure with recent TIPS procedure, comes in complaining feeling dizzy since around 4:30 in the morning. He describes as a spinning is worse with movement. He denies any focal numbness or weakness. No recent illness, but did have an episode of confusion over weekend and is not clear if he may have hit his head or not. No difficulty speaking or swallowing. No change in vision. 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 His tells me since ascites has improved markedly and they stopped diuretics since Thursday. He did have a hepatic encephalopathy episode on Thursday and afterward was start on the lactulose after which she is had several bowel movements without blood. He had no chest pain shortness of breath or palpitations. No COVID exposure and was tested COVID negative in September 29 while at [facility]. No abdominal pain. Denies dysuria or hematuria. He has some nausea with the dizziness but no vomiting. He is followed locally by Dr. Pineda as well as Dr. Sanchez and sees [facility] and is on the liver transplant list for 1 year on intake he did have worsening of dizziness with head movement Allergies Allergy/AdvReac Type Severity Reaction Status Date / Time Penicillins Allergy Unknown unknown, Verified 10/19/19 06:22 in childhood acetaminophen AdvReac Severe NO APAP Verified 10/19/19 06:[address] VILLAVICENCIO (PT HAS ASCITES) 12/18/08 latex AdvReac Intermediate SKIN Verified 10/19/19 06:22 IRRITATION steroids Allergy Severe "not Uncoded 10/19/19 06:22 supposed to take d/t ascites per Dr. Villavicencio" Home Medications Home Medications Medication Instructions Recorded Confirmed Type lactulose 30 ml PO BID 08/13/18 10/19/19 History rifaximin 550 mg PO BID 09/17/18 10/19/19 History nadolol 40 mg tablet 40 mg PO QAM #90 tab 02/16/19 10/19/19 Rx furosemide 40 mg tablet 120 mg PO QAM tab 07/18/19 10/19/19 History spironolactone 100 mg tablet 300 mg PO QAM tab 07/18/19 10/19/19 History pantoprazole 40 mg PO DAILYBB 09/19/19 10/19/19 History polyethylene glycol 3350 [Miralax] 17 g PO DAILY 09/19/19 10/19/19 History potassium chloride 10 meq PO BID 09/19/19 10/19/19 History Past Med/Surg History Medical History (Updated 10/19/19 @ 14:43 by Roland Villavicencio MD) Laennecs cirrhosis Osteoarthritis Surgical History History of colonoscopy with polypectomy History of esophagogastroduodenoscopy (EGD) History of tooth extraction S/P abdominal paracentesis HX OF---multiple---6 this year, last 02/22/19 Family History Mother Family history of diabetes mellitus Brother Hemochromatosis Other No family history of adverse response to anesthesia Social History Smoking Status: Former smoker Smoking End Date: 1983; Second Hand Exposure: Yes (father smoked); Do You Dip or Chew Tobacco: No; Tobacco Cessation Education Requested by Patient: No Hx Alcohol Use: Yes Hx Substance Use: No Preferred Language: Tajik Communication Ability: Effective Torch Heater Required: No Beliefs That Will Affect Care: None marital status: Current Living Situation: Spouse Current Living Situation Comment: Lives with and mother in law current occupational status: 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 That Helps Us Care for You: No Feels Safe at Home: Yes Safety Concerns: Feels Safe At This Time Review of Systems Review of Systems: Mild distress and fatigue no headache, blurry or double vision no speech or swallowing issues no chest pain, pressure or palpitations no shortness of breath, cough or wheezes no abdominal pain, nausea or vomiting, diarrhea or constipation no dysuria, hematuria or frequency no focal joint pain or swelling no back pain, CVA tenderness or radicular pain no bruising, bleeding or rashes no focal signs of weakness or numbness or altered sensation, no nystagmus but c/o dizziness when turning head and sitting up no complaints or anxiety or depression. Physical Exam Physical Exam: The patient appeared thin and pale but normally developed. Vital signs as documented. Head exam is normocephalic atraumatic no scleral icterus Neck is without JVD, thyromegaly, or carotid bruits. Lungs are clear to auscultation, no focal loss of breath sounds Cardiac exam, Rhythm is regular.. No murmurs, rubs or gallops. Abdominal exam reveals normal bowel sounds, soft non tender, no masses Extremities are nonedematous and both pedal pulses are normal. Neurologic exam is alert and oriented, no focal loss of strength or sensation, reproducible dizziness to confrontational testing Skin is without bruises or rashes Psychologically is without concerns for anxiety or depression Results & Data Results & Data ([facility]) Vital Signs (Past 12 Hours) Vital Signs Temp Pulse Pulse Pulse Resp BP BP 10/19/19 12:00 97.7 F 72 20 97/53 L 10/19/19 09:56 97.3 F L 76 20 101/62 10/19/19 09:45 10/19/19 09:30 10/19/19 09:26 73 20 102/56 L 10/19/19 09:15 69 18 10/19/19 09:00 72 21 102/54 L 10/19/19 08:45 74 20 10/19/19 08:31 73 17 10/19/19 08:30 71 17 108/65 10/19/19 08:24 10/19/19 08:23 71 20 10/19/19 08:22 70 20 106/58 L 10/19/19 08:00 69 15 74/38 L 10/19/19 07:45 10/19/19 07:44 67 22 94/48 L 10/19/19 07:41 71 22 10/19/19 07:15 69 20 10/19/19 07:04 10/19/19 07:03 64 67 22 96/65 L 96/65 L 10/19/19 07:02 10/19/19 07:00 69 18 10/19/19 06:46 10/19/19 06:45 67 20 10/19/19 06:32 70 19 10/19/19 06:31 68 22 102/57 L 10/19/19 06:06 98.2 F 64 18 119/66 Pulse Ox 10/19/19 12:00 99 10/19/19 09:56 100 10/19/19 09:45 99 10/19/19 09:30 99 10/19/19 09:26 100 10/19/19 09:15 100 10/19/19 09:00 100 10/19/19 08:45 100 10/19/19 08:31 100 10/19/19 08:30 100 10/19/19 08:24 100 10/19/19 08:23 100 10/19/19 08:22 100 10/19/19 08:00 100 10/19/19 07:45 100 10/19/19 07:44 100 10/19/19 07:41 100 10/19/19 07:15 99 10/19/19 07:04 99 10/19/19 07:03 99 10/19/19 07:02 99 10/19/19 07:00 99 10/19/19 06:46 99 10/19/19 06:45 100 10/19/19 06:32 99 10/19/19 06:31 98 10/19/19 06:06 98 Code Status & VTE Plan VTE Prophylaxis Plan VTE Prophylaxis will be ordered: Yes PG Care Time/CCT Total # of Minutes Spent Total Time Spent with Patient: Total time spent is greater than 50% in coordination of care (as documented) at patient's floor/unit and/or counseling patient: Coding Level of Care Code 34341 Initial Inpt Care Lvl 2 Diagnoses Dizziness R42 Hypertension I10 GERD (gastroesophageal reflux disease) K21.9 DVT prophylaxis Z29.9
[2019-10-20] MEDS: SODIUM CHLORIDE 0.9% 1000ML 1,000 ML IV SCH (06:01)
--- NOTE | 2019-10-20 06:12 | Electrocardiogram Report ---
Test Reason : Blood Pressure : / mmHG Vent. Rate : 055 BPM Atrial Rate : 055 BPM P-R Int : 116 ms QRS Dur : 096 ms QT Int : 482 ms P-R-T Axes : 061 073 070 degrees QTc Int : 461 ms Poor data quality, interpretation may be adversely affected Sinus bradycardia Nonspecific ST and T wave abnormality Abnormal ECG When compared with ECG of 18-DEC-2008 20:05, Vent. rate has decreased BY 59 BPM T wave inversion no longer evident in Inferior leads Nonspecific T wave abnormality, improved in Lateral leads Confirmed by Stuart Mcdaniel ([id number]) on 10/20/2019 6:11:54 AM Referred By: REFERRED SELF Confirmed By:Stuart Mcdaniel
[2019-10-20] MEDS ORDERED: PANTOprazole 40 MG TAB PO SCH (06:30)
[2019-10-20 07:05] LABS: Albumin Level 2.2 gm/dl (3.4-5.0); BUN Creatinine Ratio 11.6 (10-20); Bilirubin Direct 0.9 mg/dl (0-0.2); Calcium 8.1 mg/dl (8.5-10.1); Creatinine Clr Calc Pharmacy 84.4 ml/min; Est GFR (African American) 108.3; Est GFR (Non-African American) 93.5; Potassium 4.1 mmol/L (3.5-5.1)
[2019-10-20 07:08] LABS: Total Protein 5.5 gm/dl (6.4-8.2)
[2019-10-20] MEDS: RIFAXIMIN 550 MG TABLET PO SCH (07:50)
[2019-10-20] MEDS: POTASSIUM CHLORIDE 10 MEQ TABCR PO SCH (07:50)
[2019-10-20] MEDS: POLYETHYLENE (MIRALAX) 17 GM PACK PO SCH (07:51)
[2019-10-20] MEDS: nadoloL 40 MG TAB PO SCH (07:52)
[2019-10-20 08:19] VITALS: O2SAT 99
[2019-10-20] MEDS: LACTULOSE SYRUP 20 GM/30 ML UDC PO SCH (08:25)
--- NOTE | 2019-10-20 08:53 | Ultrasound Report ---
DOPPLER ULTRASOUND OF THE HEPATIC AND PORTAL VASCULATURE CLINICAL HISTORY: Assess TIPS patency. COMPARISON STUDY: Abdominal MRI dated 07/20/2018. FINDINGS: Real-time, grayscale, and color Doppler sonography of the hepatic and portal vasculature is performed. The liver is cirrhotic in morphology and heterogeneous in echotexture. There is nodularit y of the surface contour. A small volume of ascites is noted in the upper abdomen. The splenic vein i s patent. The main portal vein is patent with hepatopedal flow. Velocities in the main portal vein me asure up to 52 cm/s. A TIPS catheter is patent. Velocities within the TIPS measure up to 253 cm/s. Th e left portal vein is patent with reversal of flow. The hepatic artery is patent with velocities miya uring up to 111 cm/s. The IVC is patent. The hepatic veins are patent. There is loss of the normal he patic venous waveforms. IMPRESSION: 1. Cirrhosis and ascites. 2. The main portal vein is patent with hepatopedal flow. 3. TIPS catheter is patent. 4. There is expected reversal of flow within the left portal vein. Dictated: 10/20/2019 8:37 AM Transcribed: 10/20/2019 8:46 AM Kylah [id number] KASSANDRA_Marie Electronically signed by: Oswaldo Tam M.D. 10/20/2019 8:52 AM
--- NOTE | 2019-10-20 10:15 | Gastroenterology Progress Note ---
Date of Service October 20, 2019 Assessment & Plan (1) Mar's cirrhosis: -Further outpatient management as planned. -Continue home medications. (2) Esophageal varices: -Continue Nadolol 40 mg daily -Up to date with endoscopic surveillance (3) Hepatic encephalopathy: Possibly contributing to the dizziness; Patient has been avoiding his Lactulose as an outpatient and trying to utilize Miralax instead Patencty study from TIPs is unremarkable. -Xifaxan 550 mg BID -Lactulose 20 mg BID, may need to titrate up pending response -Miralax 17 gm, but would increase to twice daily right now -Titrate to a minimum of 3-4 bowel movements daily Discussed that this is an expected change after a TIPS. Admission and Anticipated Discharge Date Admission Date: October 19, 2019 Supervising Physician Co-Signing Physician Notes Patient was discharged prior to my evaluation Agree with RICHARD Sandoval Patient is a 64 yo male with hepatic encephalopathy after recent TIPS. He reports dizziness has resolved. He denies any new complaints. He notes he only moved his bowels twice in the past 24 hours. Review of Systems Constitutional: no fever and no chills Respiratory: no cough and no dyspnea Cardiovascular: no chest pain Gastrointestinal: no abdominal pain Physical Exam Constitutional: well developed Respiratory: normal respiratory effort Cardiovascular: Rate/Rhythm: regular rate Gastrointestinal (Abdomen): Inspection/Auscultation: abdomen normal to inspection; abdomen not distended Percussion/Palpation: no hepatomegaly and no ascites Skin: no rashes Psychiatric: A+Ox3, euthymic affect Results & Data Results & Data ([facility]) Vital Signs (Past 12 Hours) Vital Signs Temp Pulse Pulse Pulse Resp BP BP 10/20/19 09:24 77 10/20/19 08:18 36.8 C 67 18 96/53 L 10/20/19 03:37 36.4 C L 67 16 90/48 L 10/20/19 00:00 36.8 C 67 16 99/59 L Pulse Ox 10/20/19 09:24 10/20/19 08:18 99 10/20/19 03:37 97 10/20/19 00:00 99 PG Care Time/CCT Total # of Minutes Spent Total Time Spent with Patient: Total time spent is greater than 50% in coordination of care (as documented) at patient's floor/unit and/or counseling patient: Coding Level of Care Code 37553 Subseq Hosp Care Lvl 2 Diagnoses Laennec's cirrhosis K70.30 Esophageal varices I85.00 Hepatic encephalopathy K72.90
[2019-10-20 12:45] VITALS: BP 106/63; TEMP 97.5
[2019-10-20 14:46] VITALS: PULSE 67
--- NOTE | 2019-10-20 17:53 | Discharge Summary ---
Date of Service October 20, 2019 Admission HPI Per Admitting Provider This patient has a history of liver failure with recent TIPS procedure, comes in complaining feeling dizzy since around 4:30 in the morning. He describes as a spinning is worse with movement. He denies any focal numbness or weakness. No recent illness, but did have an episode of confusion over weekend and is not clear if he may have hit his head or not. No difficulty speaking or swallowing. No change in vision. 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 His tells me since ascites has improved markedly and they stopped diuretics since Thursday. He did have a hepatic encephalopathy episode on Thursday and afterward was start on the lactulose after which she is had several bowel movements without blood. He had no chest pain shortness of breath or palpitations. No COVID exposure and was tested COVID negative in September 29 while at [facility]. No abdominal pain. Denies dysuria or hematuria. He has some nausea with the dizziness but no vomiting. He is followed locally by Dr. Pineda as well as Dr. Sanchez and sees [facility] and is on the liver transplant list for 1 year on intake he did have worsening of dizziness with head movement Principal Diagnosis Vertigo Elevated ammonia level Discharge Exam The patient appeared well Vital signs as documented. Lungs are clear to auscultation and appear unlabored Cardiac exam, Rhythm is regular.. No murmurs, rubs or gallops. Abdominal exam reveals normal bowel sounds, soft non tender, no masses Extremities are nonedematous and both pedal pulses are normal. Neurologic exam is alert and oriented, no focal loss of strength or sensation Skin is without bruises or rashes Psychologically is without concerns for anxiety or depression Discharge Data Allergies Allergy/AdvReac Type Severity Reaction Status Date / Time Penicillins Allergy Unknown unknown, Verified 10/19/19 06:22 in childhood acetaminophen AdvReac Severe NO APAP Verified 10/19/19 06:[address] VILLAVICENCIO (PT HAS ASCITES) 12/18/08 latex AdvReac Intermediate SKIN Verified 10/19/19 06:22 IRRITATION steroids Allergy Severe "not Uncoded 10/19/19 06:22 supposed to take d/t ascites per Dr. Villavicencio" Consultations 10/19/19 08:05 ED Decision to Admit Stat 10/19/19 10:18 Consult Gastroenterology Routine Ordered Studies 10/19/19 06:42 CT head/brain wo con Stat 10/19/19 16:29 US duplex portal hepatic veins Routine Hospital Course (1) Dizziness: Some description of vertigo, improved with meclizine, did have negative CT head but also dose have minor ammonia elevation, continue lactulose and rifamixin GI consultation did request hepatic Doppler to rule out portal vein thrombosis which was ruled out. Patient will continue on lactulose try for Celio and PRN meclizine (2) Hypertension: Pt recently did have lasix and spironolactone stopped, remains on Nadolol will discharge without restarting the spironolactone and Lasix (3) GERD (gastroesophageal reflux disease): protonix Total Time Total Time Spent Total Time Spent (In Minutes): It required greater than 30 minutes to prepare this patient for discharge, this includes personal discussion with GI team physician's assistant professor of spanish Kristine Ivey Discharge Plan Discharge Items Patient Disposition: Home - Self-Care Reason For Visit: DIZZINESS Discharge Diagnosis: vertigo elevated ammonia Activity: Resume your previous activity Non-emergency contact: Primary Care Provider and Medical Office Clerk Call non-emergency contact if: you have any medication questions and your symptoms worsen Follow-up/Referrals: Missael Pineda [Primary Care Provider] - 11/03/19 9:50 am Diet: Regular Addtl Attending Provider Instructions: please take your lactulose and rifaximin use meclizine if you have dizziness symptoms follow up with your rag sorter and cutter as scheduled previously Pending Studies at Discharge: No Stand-Alone Forms: My TV2 Holding, Smoking Cessation Medications and DC Order Prescriptions: New meclizine 25 mg Tablet 25 mg PO Q6H PRN (Reason: dizziness) Qty: 20 RF: 0 Continued nadolol 40 mg tablet 40 mg PO QAM Qty: 90 RF: 3 rifaximin 550 mg Tablet 550 mg PO BID RF: 0 polyethylene glycol 3350 [Miralax] 17 gram/dose Powder 17 g PO DAILY RF: 0 potassium chloride 10 mEq tablet extended release 10 meq PO BID RF: 0 pantoprazole 40 mg tablet,delayed release (DR/EC) 40 mg PO DAILYBB RF: 0 lactulose 10 gram/15 mL Solution 30 ml PO BID RF: 0 Discontinued furosemide [Lasix] 40 mg tablet 120 mg PO QAM RF: 0 spironolactone 100 mg tablet 300 mg PO QAM RF: 0 Discharge Orders: Discharge Order (Routine); Ordered 10/20/19 Ordered By: Roland Villavicencio Admission Data Admit Date/Time: 10/19/19 08:33 Attending Provider: Roland Villavicencio Admit Provider: Roland Villavicencio Primary Care Provider: Missael Pineda Other Providers: Roland Villavicencio ; Delgado Sanchez Other Interventions: Discharge Summary Assessment (RN) Last Done: 10/20/19 14:44 Coding Level of Care Code D/C Day Management >30 mins Diagnoses Dizziness R42 Hypertension I10 GERD (gastroesophageal reflux disease) K21.9
== END 2019-10-20 15:42 | disposition home or self-care (01) ==
LOC: 2S 06:04 → ED 06:04 → 2S 09:45